=== PATIENT | male | born 1975 | race African-American/Black ===

== ENCOUNTER 2017-02-02 21:15 | Emergency (ER) | payer MEDICAID ==
[~2017-02-02] VITALS: Ht 180.3 cm; Wt 135.6 kg
[2017-02-02 21:15] VITALS: BP_SYST 139
[2017-02-02 23:30] VITALS: BP_SYST 138
== END 2017-02-02 23:30 | disposition home or self-care (01) ==
LOC: SED 21:15
DX: L97.329 Non-pressure chronic ulcer of left ankle with unspecified severity (principal); I10 Essential (primary) hypertension
CPT/HCPCS: 99283